=== PATIENT | female | born 1990 | race Caucasian/White ===

== ENCOUNTER 2018-05-06 01:50 | Emergency (ER) | payer OTHER ==
[~2018-05-06] VITALS: Ht 167.6 cm; Wt 83.0 kg
[2018-05-06 02:03] VITALS: Ht 167.6 cm; Wt 83.0 kg
[2018-05-06 02:38] LABS: CALCIUM 8.5 mg/dL (8.5-10.1); CARBON DIOXIDE 26.6 mmol/L (21-32); CHLORIDE SERUM 104 mmol/L (98-107); CREATININE SERUM 0.7 mg/dL (0.6-1.0); GFR1 > 60 mL/min; GLUCOSE SERUM 93 mg/dL (74-106); POTASSIUM SERUM 3.5 mmol/L (3.5-5.1); SODIUM SERUM 139 mmol/L (136-145)
[2018-05-06 02:39] LABS: AMPHETAMINE QUAL UR NONE DETECTED (See below)
[2018-05-06 02:45] LABS: BASOPHIL % 0.6 % (0-2); PLATELET COUNT 184 x10^3mcL (130-400); RED CELL DISTRIBUTION WIDTH 13.8 % (11.5-14.5)
[2018-05-06 02:56] LABS: FREE T4 1.08 ng/dL (0.76-1.46)
[2018-05-06 03:29] VITALS: BP 116/79
== END 2018-05-06 03:29 | disposition home or self-care (01) ==
LOC: ED 01:50
PROVIDERS: Emergency Medicine
DX: F41.9 Anxiety disorder, unspecified (principal)
CPT/HCPCS: 36415; 84439; G0480; Q0092

== ENCOUNTER 2018-05-08 02:52 | Emergency (ER) | payer OTHER ==
[~2018-05-08] VITALS: Ht 167.6 cm; Wt 82.7 kg
[2018-05-08 03:00] VITALS: Ht 167.6 cm; Wt 82.7 kg
[2018-05-08 04:58] VITALS: BP 119/79
== END 2018-05-08 04:58 | disposition home or self-care (01) ==
LOC: ED 02:52
DX: F41.9 Anxiety disorder, unspecified (principal)

== ENCOUNTER 2018-05-09 01:21 | Emergency (ER) | payer OTHER ==
[~2018-05-09] VITALS: Ht 167.6 cm; Wt 81.6 kg
[2018-05-09 01:25] VITALS: Ht 167.6 cm; Wt 81.6 kg
[2018-05-09 02:02] LABS: BASOPHIL % 0.2 % (0-2); PLATELET COUNT 196 x10^3mcL (130-400); RED CELL DISTRIBUTION WIDTH 14.3 % (11.5-14.5)
[2018-05-09 02:14] LABS: CALCIUM 9.1 mg/dL (8.5-10.1); CHLORIDE SERUM 103 mmol/L (98-107); CREATININE SERUM 0.6 mg/dL (0.6-1.0); GFR1 > 60 mL/min; GLUCOSE SERUM 99 mg/dL (74-106); POTASSIUM SERUM 3.1 mmol/L (3.5-5.1); SODIUM SERUM 140 mmol/L (136-145)
[2018-05-09 02:19] LABS: ALBUMIN 3.8 g/dL (3.4-5.0); ALKALINE PHOSPHATASE 57 U/L (46-116); ALT/SGPT 18 U/L (14-59); AST/SGOT 16 U/L (15-37); BILIRUBIN TOTAL 0.38 mg/dL (0.20-1.00); LIPASE 295 IU/L (73-393); MAGNESIUM 1.7 mg/dL (1.8-2.4); TOTAL PROTEIN, SERUM 7.7 g/dL (6.4-8.2)
[2018-05-09 02:51] LABS: UA SPECIFIC GRAVITY 1.025 (1.005-1.035); microscopic required? YES; urine erythrocyte TRACE (NEGATIVE)
[2018-05-09 03:49] VITALS: BP 132/82
== END 2018-05-09 04:17 | disposition home or self-care (01) ==
LOC: ED 01:21
PROVIDERS: Emergency Medicine
DX: N39.0 Urinary tract infection, site not specified (principal); E87.6 Hypokalemia; E83.42 Hypomagnesemia
CPT/HCPCS: J0696; J1630; J2405; J7030

== ENCOUNTER 2018-07-26 04:53 | Emergency (ER) | payer OTHER ==
[~2018-07-26] VITALS: Ht 167.6 cm; Wt 83.0 kg
[2018-07-26 04:56] VITALS: Ht 167.6 cm; Wt 83.0 kg
[2018-07-26 06:09] LABS: microscopic required? NO
[2018-07-26 06:32] LABS: UA SPECIFIC GRAVITY 1.025 (1.005-1.035); urine erythrocyte NEGATIVE (NEGATIVE)
[2018-07-26 08:17] VITALS: BP 121/73
== END 2018-07-26 08:17 | disposition home or self-care (01) ==
LOC: ED 04:53
PROVIDERS: Emergency Medicine
DX: M54.40 Lumbago with sciatica, unspecified side (principal)
CPT/HCPCS: J1885

== ENCOUNTER 2019-10-12 06:25 | Emergency (ER) | payer OTHER ==
[~2019-10-12] VITALS: Ht 167.6 cm; Wt 106.1 kg
[2019-10-12 06:34] VITALS: Ht 167.6 cm; Wt 106.1 kg
[2019-10-12 07:13] VITALS: BP 112/74
== END 2019-10-12 07:13 | disposition home or self-care (01) ==
LOC: ED 06:25
DX: S39.012A Strain of muscle, fascia and tendon of lower back, initial encounter (principal); X58.XXXA Exposure to other specified factors, initial encounter; Y93.89 Activity, other specified; Y92.89 Other specified places as the place of occurrence of the external cause; Y99.8 Other external cause status
CPT/HCPCS: J1885